=== PATIENT | female | born 1995 | race Caucasian/White ===

== ENCOUNTER 2021-02-16 21:55 | Emergency (ER) | payer MEDICAID ==
[~2021-02-16] VITALS: Ht 162.6 cm; Wt 74.4 kg
[2021-02-16 22:10] VITALS: BP_SYST 124
--- NOTE | 2021-02-16 22:10 | NUR ---
PT TO REMAIN IN ER LOBBY UNTIL ER BED BECOMES AVAILABLE.
--- NOTE | 2021-02-16 23:00 | NUR ---
REPORT GIVEN TO DUANE ROMERO WHO WILL ASSUME CARE.
--- NOTE | 2021-02-17 | NUR ---
PATIENT AAOX4 AND AMBULATORY C/O LEFT ANKLE PAIN D/T FALLING INTO POOL FILTER HOLE. VSS. SWELLING TO LEFT ANKLE. VSS. CURRENTLY STATING 6/10 ON PAIN SCALE.
--- NOTE | 2021-02-17 00:26 | NUR ---
DR. HINES AT BEDSIDE FOR EVALUATION
[2021-02-17] MEDS ORDERED: IBUPROFEN 600 MG TABLET PO ONE (00:30)
[2021-02-17] MEDS ORDERED: IBUP-1969 PO (00:31)
[2021-02-17 00:45] VITALS: BP_SYST 124
--- NOTE | 2021-02-17 00:45 | NUR ---
Patient given written and verbal discharge instructions and verbalizes understanding. DR. DONNY ORNELAS MD discussed with patient the results and treatment provided. Patient in stable condition. ID arm band removed. Rx of IBUPROFEN given. Patient educated on pain management and to follow up with PMD. Pain Scale 0/10 Opportunity for questions provided and answered. Medication side effect fact sheet provided.
== END 2021-02-17 00:45 | disposition home or self-care (01) ==
LOC: SED 21:55
DX: S93.402A Sprain of unspecified ligament of left ankle, initial encounter (principal); S80.02XA Contusion of left knee, initial encounter; Z88.1 Allergy status to other antibiotic agents; Z79.899 Other long term (current) drug therapy; W18.39XA Other fall on same level, initial encounter; Y93.89 Activity, other specified; Y92.89 Other specified places as the place of occurrence of the external cause; Y99.8 Other external cause status
CPT/HCPCS: 99283